=== PATIENT | male | born 1955 | race Caucasian/White ===

== ENCOUNTER 2019-10-06 17:17 | Emergency (ER) | payer MEDICARE, OTHER ==
[~2019-10-06] VITALS: Ht 193 cm; Wt 121.0 kg
--- NOTE | 2019-10-06 17:51 | ED Cough/URI ---
General Chief Complaint: Fever-Adult/Adol Stated Complaint: TROUBLE BREATHING,HEADACHE,FEVER Source: patient Exam Limitations: no limitations History of Present Illness Date Seen by Provider: Oct 06, 2019 Time Seen by Provider: 17:40 Initial Comments Onset of headache and fever yesterday with associated lower chest tightness without a cough. Some mild shortness of air. 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 No Hx of lung disease. No Hx of heart disease. On arrival, denies chest pain or soa....just fever. Allergies and Home Medications Patient Home Medication List Home Medication List Reviewed: Yes Review of Systems Review of Systems Constitutional: see HPI EENTM: hoarseness, nose congestion Respiratory: see HPI; No cough; short of breath Cardiovascular: see HPI, chest pain; No Hx of Intervention, No palpitations, No vascular heart diseas Gastrointestinal: No abdominal pain, No constipation, No diarrhea, No loss of appetite, No nausea, No vomiting Musculoskeletal: No back pain, No joint pain, No muscle pain Skin: No change in color, No rash Past Ariryxi-Kyeyyy-Dometb Hx Past Med/Social Hx: Reviewed Nursing Past Med/Soc Hx Patient Social History Recent Foreign Travel: No Contact w/Someone Who Travel: No Physical Exam Vital Signs - First Documented 10/06/19 17:20 Temp 36.9 Pulse 78 Resp 16 B/P (MAP) 137/70 (92) Pulse Ox 94 O2 Delivery Room Air Capillary Refill : Height: '" Weight: lbs. oz. kg; BMI Method: General Appearance: WD/WN, no apparent distress HEENT: normal ENT inspection, TMs normal, pharynx normal Neck: non-tender, full range of motion, supple Respiratory: chest non-tender, lungs clear, no respiratory distress, no accessory muscle use Cardiovascular: regular rate, rhythm, no edema, no JVD Gastrointestinal: normal bowel sounds, non tender, soft, no organomegaly Extremities: non-tender, no pedal edema Neurologic/Psychiatric: no motor/sensory deficits, alert Skin: normal color, warm/dry Progress/Results/Core Measures Suspected Sepsis SIRS Temperature: Pulse: Respiratory Rate: Blood Pressure / Mean: Results/Orders Lab Results Laboratory Tests Test 10/06/19 17:45 Range/Units Group A Streptococcus Screen NEGATIVE NEGATIVE Micro Results Microbiology 10/06/19 Influenza Types A,B Antigen (STELLA) - Final, Complete My Orders Orders - KHAI SAN DO Rapid Strep A Screen (10/06/19 17:44) Influenza A And B Antigens (10/06/19 17:44) Vital Signs/I&O 10/06/19 17:20 Temp 36.9 Pulse 78 Resp 16 B/P (MAP) 137/70 (92) Pulse Ox 94 O2 Delivery Room Air Capillary Refill : Progress Note : Progress Note neg strep and neg flu. swabbed for CoVid-19. Explained delay in results and that he will get a call. In the meantime advised quarantine for 14 days. Departure Impression Primary Impression: Fever Qualified Codes: R50.9 - Fever, unspecified Additional Impression: Viral upper respiratory illness Disposition: 01 HOME, SELF-CARE Condition: Stable Departure-Patient Inst. Decision time for Depature: 17:51 Referrals: SELFCAYLA MD (PCP/Family) Primary Care Physician Work/School Note: Work Release Form Date Seen in the Emergency Department: Oct 06, 2019 Return to Work: Oct 20, 2019 KHAI SAN DO Oct 06, 2019 17:51
[2019-10-06 18:45] VITALS: BP 114/66
--- NOTE | 2019-10-06 18:45 | NUR ---
Pt and daughter both educated on the social distancing and to have no contact with anyone until pt hears final result of nova swab.
--- NOTE | 2019-10-10 18:23 | NUR ---
patients COVID-19 test came back from [facility] negative, Roxanne Brooks at [facility] was notified as was the patient.
== END 2019-10-06 18:45 | disposition home or self-care (01) ==
LOC: ER FS 17:20
DX: J06.9 Acute upper respiratory infection, unspecified (principal)
CPT/HCPCS: 36415; 87430; 87635; 87804

== ENCOUNTER → 2019-12-05 | Outpatient (CLI) | payer MEDICARE, OTHER ==
--- NOTE | 2019-12-05 12:18 | Diagnostic Imaging Report ---
Clinical indication: Follow-up of left wrist fracture. EXAM: X-ray of the left wrist, 3 views. COMPARISON: None. Findings and impression: 1: Cast material is seen overlying the left wrist which limits evaluation of fine bony detail. There is a mildly impacted comminuted intra-articular fracture of the distal radial metaphysis which is in near-anatomic alignment. 2: There is no other definite fracture seen on this exam, but cast obscures complete evaluation. 3: There appears to be slight widening of the distal radioulnar joint region measuring roughly 4 mm, which may be related to ligamentous injury. Dictated by: Dictated on workstation # [id number]
== END ==
LOC: RAD FS 09:25
PROVIDERS: ATTEND Nurse Practitioner
DX: S52.572D Other intraarticular fracture of lower end of left radius, subsequent encounter for closed fracture with routine healing (principal); X58.XXXD Exposure to other specified factors, subsequent encounter
CPT/HCPCS: 73110

== ENCOUNTER → 2019-12-15 | Outpatient (CLI) | payer MEDICARE, OTHER ==
--- NOTE | 2019-12-15 11:20 | Diagnostic Imaging Report ---
INDICATION: Radial fracture AP, oblique and lateral views of the left wrist are obtained with comparison made to study of 12/05/2019. There is continued mildly impacted, mildly comminuted fracture involving the distal metaphysis and epiphysis of the left radius. There is mild displacement of the ulnar most fragment of the distal radius resulting in mild offset of articular surface. There is widening of the distal radioulnar joint. No new fracture is seen. IMPRESSION: No definite change in subacute intra-articular displaced fracture of distal radius with probable ligamentous disruption at the distal radioulnar joint. Dictated by: Dictated on workstation # [id number]
== END ==
LOC: RAD FS 11:02
PROVIDERS: ATTEND Nurse Practitioner
DX: S52.572D Other intraarticular fracture of lower end of left radius, subsequent encounter for closed fracture with routine healing (principal); X58.XXXD Exposure to other specified factors, subsequent encounter
CPT/HCPCS: 73110

== ENCOUNTER → 2019-12-29 | Outpatient (CLI) | payer MEDICARE, OTHER ==
--- NOTE | 2019-12-29 10:59 | Diagnostic Imaging Report ---
INDICATION: Left wrist fracture. Comparison purposes. COMPARISON: None. FINDINGS: 2 views of the right wrist were obtained and show no fractures, dislocations, or other acute bony abnormalities. Joint spaces are well maintained throughout. The soft tissues appear unremarkable. No radiopaque foreign bodies are identified. IMPRESSION: Unremarkable radiographic exam of the right wrist. Dictated by: Dictated on workstation # [id number]
--- NOTE | 2019-12-29 11:04 | Diagnostic Imaging Report ---
INDICATION: Fracture follow-up. COMPARISON: 12/15/2019 FINDINGS: 3 radiographic views of the left wrist were obtained. Acute fracture of the distal radius is identified. Fracture line again is seen in a prominent transverse orientation, although there is intra-articular extension. Fracture lines now appear slightly more sclerotic when compared to previous exam. This is felt to be on the basis of partial interval healing. Fracture fragments are in stable alignment. Joint spaces are maintained. No unexpected radiopaque foreign bodies are seen. IMPRESSION: 1. Redemonstration of partially healed fractures of the distal left radius as described above. Dictated by: Dictated on workstation # [id number]
== END ==
LOC: RAD FS 10:16
PROVIDERS: ATTEND Nurse Practitioner
DX: S52.572D Other intraarticular fracture of lower end of left radius, subsequent encounter for closed fracture with routine healing (principal)
CPT/HCPCS: 73100; 73110

== ENCOUNTER 2020-03-10 19:51 | Emergency (ER) | payer MEDICARE, OTHER ==
[~2020-03-10] VITALS: Ht 190.5 cm; Wt 120.5 kg
--- NOTE | 2020-03-10 20:01 | ED GU-Male ---
General Stated Complaint: GENITAL PROBLEMS History of Present Illness Date Seen by Provider: Mar 10, 2020 Time Seen by Provider: 19:56 Initial Comments 64-year-old male presents with bilateral lower ankle swelling, likely feels like his base of abdominal swelling. Mild decrease in urine. He has no fevers or chills. Reports been going on for at least a week maybe a little bit longer. He comes in because he called a family friend who is an RN until need to get it checked out to have his kidneys looked at. He does not have any increased shortness of breath, wheezing fevers chills nausea or vomiting. Allergies and Home Medications Patient Home Medication List Home Medication List Reviewed: Yes Review of Systems Review of Systems Constitutional: No chills, No fever EENTM: no symptoms reported Respiratory: no symptoms reported; No cough, No short of breath, No wheezing Cardiovascular: No chest pain; edema; No palpitations Gastrointestinal: see HPI; No nausea, No vomiting Musculoskeletal: see HPI Skin: no symptoms reported Psychiatric/Neurological: No Symptoms Reported Endocrine: No Symptoms Reported Past Jjczcep-Hgygqe-Kubqbg Hx Past Med/Social Hx: Reviewed Nursing Past Med/Soc Hx Patient Social History 2nd Hand Smoke Exposure: No Recent Foreign Travel: No Contact w/Someone Who Travel: No Recent Hopitalizations: No Seasonal Allergies Seasonal Allergies: No Past Medical History Surgeries: No Respiratory: No Cardiac: No Neurological: No Genitourinary: No Gastrointestinal: Yes Ulcer Musculoskeletal: No Endocrine: No HEENT: No Cancer: No Psychosocial: No Integumentary: No Blood Disorders: No Adverse Reaction/Blood Tranf: No Physical Exam Vital Signs Vital Signs - First Documented 03/10/20 19:55 Temp 36.8 Pulse 76 Resp 18 B/P (MAP) 140/81 (100) Pulse Ox 96 O2 Delivery Room Air Capillary Refill : Height, Weight, BMI Height: '" Weight: lbs. oz. kg; 32.00 BMI Method: General Appearance: WD/WN, no apparent distress Neck: full range of motion, supple Cardiovascular: normal peripheral pulses, regular rate, rhythm, other (2+ bilateral lower extremity edema ) Respiratory: lungs clear, normal breath sounds Gastrointestinal: non tender, soft Back: no CVA tenderness, no vertebral tenderness Extremities: non-tender, pedal edema Neurologic/Psychiatric: alert, normal mood/affect, oriented x 3 Skin: normal color, warm/dry Progress/Results/Core Measures Suspected Sepsis SIRS Temperature: Pulse: Respiratory Rate: Laboratory Tests 03/10/20 20:05: White Blood Count 5.1 Blood Pressure / Mean: Laboratory Tests 03/10/20 20:05: Creatinine 0.86, Platelet Count 86L, Total Bilirubin 0.7 Results/Orders Lab Results Laboratory Tests Test 03/10/20 20:05 Range/Units White Blood Count 5.1 4.3-11.0 10^3/uL Red Blood Count 4.06 L 4.35-5.85 10^6/uL Hemoglobin 13.4 13.3-17.7 G/DL Hematocrit 39 L 40-54 % Mean Corpuscular Volume 97 80-99 FL Mean Corpuscular Hemoglobin 33 25-34 PG Mean Corpuscular Hemoglobin Concent 34 32-36 G/DL Red Cell Distribution Width 14.3 10.0-14.5 % Platelet Count 86 L 130-400 10^3/uL Mean Platelet Volume 8.3 7.4-10.4 FL Neutrophils (%) (Auto) 66 42-75 % Lymphocytes (%) (Auto) 22 12-44 % Monocytes (%) (Auto) 8 0-12 % Eosinophils (%) (Auto) 3 0-10 % Basophils (%) (Auto) 1 0-10 % Neutrophils # (Auto) 3.4 1.8-7.8 X 10^3 Lymphocytes # (Auto) 1.1 1.0-4.0 X 10^3 Monocytes # (Auto) 0.4 0.0-1.0 X 10^3 Eosinophils # (Auto) 0.2 0.0-0.3 10^3/uL Basophils # (Auto) 0.0 0.0-0.1 10^3/uL Sodium Level 139 135-145 MMOL/L Potassium Level 4.1 3.6-5.0 MMOL/L Chloride Level 107 98-107 MMOL/L Carbon Dioxide Level 22 21-32 MMOL/L Anion Gap 10 5-14 MMOL/L Blood Urea Nitrogen 20 H 7-18 MG/DL Creatinine 0.86 0.60-1.30 MG/DL Estimat Glomerular Filtration Rate > 60 BUN/Creatinine Ratio 23 Glucose Level 107 H 70-105 MG/DL Calcium Level 8.4 L 8.5-10.1 MG/DL Corrected Calcium 8.9 8.5-10.1 MG/DL Magnesium Level 2.0 1.6-2.4 MG/DL Total Bilirubin 0.7 0.1-1.0 MG/DL Aspartate Amino Transf (AST/SGOT) 41 H 5-34 U/L Alanine Aminotransferase (ALT/SGPT) 26 0-55 U/L Alkaline Phosphatase 139 H 40-136 U/L Total Protein 6.4 6.4-8.2 GM/DL Albumin 3.4 3.2-4.5 GM/DL My Orders Orders - BRYANNA MEJIA DO Cbc With Automated Diff (03/10/20 20:02) Comprehensive Metabolic Panel (03/10/20 20:02) Ua Culture If Indicated (03/10/20 20:02) Acute Abd Series (03/10/20 20:02) Magnesium (03/10/20 20:02) Vital Signs/I&O 03/10/20 19:55 Temp 36.8 Pulse 76 Resp 18 B/P (MAP) 140/81 (100) Pulse Ox 96 O2 Delivery Room Air Capillary Refill : Progress Note : Time: 21:22 Progress Note A shunt with some bilateral lower extremity edema. Patient did urinate just prior to coming the ER and does not need he urinates I will not worry about check a urine. He does have issues consistent with BPH with difficulty starting, decreased flow. I will give him some Flomax to try along with some Lasix for his bilateral lower extremity edema. I recommended he follow-up with his primary care provider in a couple days. Patient is stable will be discharged home Diagnostic Imaging Diagonstic Imaging: Xray Plain Films/CT/US/NM/MRI: abdomen Comments NAME: PRIYANKA OWEN [facility] REC#: [id number] PT STATUS: REG ER : 1955 PHYSICIAN: BRYANNA MEJIA DO ADMIT DATE: 03/10/20/ER FS Dr [email or web address] Date of Exam:03/10/20 ACUTE ABD SERIES CLINICAL INDICATION: Patient with abdominal swelling and fullness. EXAMS: X-ray of the chest PA view and x-ray of the abdomen supine and upright views. COMPARISONS: None. FINDINGS: LUNGS/ PLEURA: There is mild discoid atelectasis involving both lung bases. Otherwise, lungs are clear. There is no pneumothorax. There is no pleural effusion. MEDIASTINUM: Unremarkable. PULMONARY VASCULATURE: Unremarkable. HEART: Unremarkable. BONES/ EXTRATHORACIC SOFT TISSUE: There are degenerative spurs involving the thoracic and lumbar spine. ABDOMEN AND PELVIS: Unremarkable x-ray of the abdomen with nonobstructed bowel gas pattern. There is no evidence of abdominal free air. Nonspecific nondilated air-filled small bowel overlying the right abdomen is seen. Likely phleboliths seen in the left pelvis region. There are no focal calcifications overlying the expected regions/ pathways of both kidneys, ureters and bladder regions. IMPRESSION: 1: Mild bibasilar atelectasis. Otherwise, there is no radiographic evidence of acute cardiopulmonary process. 2: There is no significant abnormality involving the abdomen and pelvis. Reviewed: Reviewed by Me, Reviewed/Discussed Departure Impression Primary Impression: Bilateral lower extremity edema Disposition: 01 HOME, SELF-CARE Condition: Stable Departure-Patient Inst. Referrals: SELF,CAYLA ROSAS (PCP/Family) Primary Care Physician Patient Instructions: Dependent Edema (DC) Add. Discharge Instructions: Follow-up with your primary care provider in 2-3 days. Please discuss with them concerns for possible prosthetic hypertrophy. Please let them know that we started on some Lasix for a couple days for some lower extremity edema. Scripts Furosemide (Lasix) 20 Mg Tablet 20 MG PO DAILY, #5 TAB Prov: BRYANNA MEJIA DO 03/10/20 BRYANNA MEJIA DO Mar 10, 2020 20:01
[2020-03-10 20:12] LABS: EOSINOPHILS # (AUTO) 0.2 10^3/uL (0.0-0.3); HEMATOCRIT 39 % (40-54); HEMOGLOBIN 13.4 G/DL (13.3-17.7); LYMPHOCYTES # (AUTO) 1.1 X 10^3 (1.0-4.0); MEAN CORPUSCULAR HEMOGLOBIN 33 PG (25-34); MEAN CORPUSCULAR HGB CONC 34 G/DL (32-36); MEAN CORPUSCULAR VOLUME 97 FL (80-99); MONOCYTES # (AUTO) 0.4 X 10^3 (0.0-1.0); NEUTROPHILS # (AUTO) 3.4 X 10^3 (1.8-7.8); PLATELET COUNT 86 10^3/uL (130-400); RED CELL DISTRIBUTION WIDTH 14.3 % (10.0-14.5); WHITE BLOOD COUNT 5.1 10^3/uL (4.3-11.0)
[2020-03-10 20:13] LABS: BASOPHILS % (AUTO) 1 % (0-10); EOSINOPHILS % (AUTO) 3 % (0-10); LYMPHOCYTES % (AUTO) 22 % (12-44); MEAN PLATELET VOLUME 8.3 FL (7.4-10.4); MONOCYTES % (AUTO) 8 % (0-12); NEUTROPHILS % (AUTO) 66 % (42-75)
[2020-03-10 20:32] LABS: ALANINE AMINOTRANSFERASE 26 U/L (0-55); ALBUMIN 3.4 GM/DL (3.2-4.5); ALKALINE PHOSPHATASE 139 U/L (40-136); BILIRUBIN,TOTAL 0.7 MG/DL (0.1-1.0); BUN/CREATININE RATIO 23; CALCIUM 8.4 MG/DL (8.5-10.1); CARBON DIOXIDE 22 MMOL/L (21-32); CHLORIDE 107 MMOL/L (98-107); CREATININE SERUM 0.86 MG/DL (0.60-1.30); GFR ESTIMATED > 60; GLUCOSE 107 MG/DL (70-105); POTASSIUM 4.1 MMOL/L (3.6-5.0); SODIUM 139 MMOL/L (135-145); TOTAL PROTEIN 6.4 GM/DL (6.4-8.2)
--- NOTE | 2020-03-10 21:04 | Diagnostic Imaging Report ---
CLINICAL INDICATION: Patient with abdominal swelling and fullness. EXAMS: X-ray of the chest PA view and x-ray of the abdomen supine and upright views. COMPARISONS: None. FINDINGS: LUNGS/ PLEURA: There is mild discoid atelectasis involving both lung bases. Otherwise, lungs are clear. There is no pneumothorax. There is no pleural effusion. MEDIASTINUM: Unremarkable. PULMONARY VASCULATURE: Unremarkable. HEART: Unremarkable. BONES/ EXTRATHORACIC SOFT TISSUE: There are degenerative spurs involving the thoracic and lumbar spine. ABDOMEN AND PELVIS: Unremarkable x-ray of the abdomen with nonobstructed bowel gas pattern. There is no evidence of abdominal free air. Nonspecific nondilated air-filled small bowel overlying the right abdomen is seen. Likely phleboliths seen in the left pelvis region. There are no focal calcifications overlying the expected regions/ pathways of both kidneys, ureters and bladder regions. IMPRESSION: 1: Mild bibasilar atelectasis. Otherwise, there is no radiographic evidence of acute cardiopulmonary process. 2: There is no significant abnormality involving the abdomen and pelvis. Dictated by: Dictated on workstation # [id number]
--- NOTE | 2020-03-10 21:15 | NUR ---
Dr. Blackman was informed that pt has tried multiple times to urinate and is not able to. Dr. Blackman said don't worry about the urine sample. Pt was informed.
[2020-03-10] MEDS ORDERED: FURO-125 PO (21:25)
[2020-03-10 21:27] VITALS: BP 136/76
== END 2020-03-10 21:27 | disposition home or self-care (01) ==
LOC: EDUNIT# 19:51 → ER FS 19:54
DX: R60.0 Localized edema (principal)
CPT/HCPCS: 36415; 74022; 80053; 83735; 85025

== ENCOUNTER → 2020-03-16 | Outpatient (CLI) | payer MEDICARE, OTHER ==
[~2020-03-16] MED LIST: CATHETER FLUSH 10 ML SYR IV PRN; FURO-125 PO; HOLD METFORMIN - RECEIVED CONTRAST 20 ML VIAL IV SCH; IOHEXOL 350 MG/ML 100 ML (OMNIPAQUE 350) VIAL IV ONE; NS 100 ML (IVPB) BAG IV ONE
--- NOTE | 2020-03-16 10:44 | Diagnostic Imaging Report ---
INDICATION: Abdominal bloating x1 week. TECHNIQUE: Multiple contiguous axial images were obtained through the abdomen and pelvis after administration of intravenous contrast. Auto Exposure Controls were utilized during the CT exam to meet ALARA standards for radiation dose reduction. COMPARISON: There is no previous study for comparison. FINDINGS: The visualized portions of the lung bases are clear except for minimal bibasilar atelectasis. There is no pleural fluid or free intraperitoneal air. There is diffuse ascites of moderate severity. The liver shows a nodular contour compatible with cirrhosis. There is no focal liver lesion. The portal vein appears to be patent. There is a recanalized umbilical vein compatible with portal hypertension. The spleen is mildly enlarged measuring 15.8 cm. There is no focal splenic lesion. The adrenals and pancreas and kidneys all appear normal. There is some mild mesenteric edema. There is no sign of bowel obstruction or bowel wall thickening. IMPRESSION: There is diffuse ascites. There are sclerotic changes to the liver with evidence of portal hypertension with recanalized umbilical vein. There is mild splenomegaly. There is no sign of bowel obstruction. Dictated by: Dictated on workstation # [id number]
== END ==
LOC: RAD FS 09:06
PROVIDERS: ATTEND Family Medicine
DX: K76.89 Other specified diseases of liver (principal); R18.8 Other ascites; R14.0 Abdominal distension (gaseous); R16.1 Splenomegaly, not elsewhere classified
CPT/HCPCS: 74177